=== PATIENT | female | born 1955 | race Two or more races ===

== ENCOUNTER → 2017-10-14 | Outpatient (CLI) | payer MEDICARE, MEDICAID ==
[~2017-10-14] MED LIST: ATOR20TA15 PO; CALC12502 PO; CALC1TAB42 PO; LISI-515 PO; VITA400C28 PO
[2017-10-14 11:54] LABS: AUTOMATED NEUTROPHIL # 3.6 TH/MM3 (1.8-7.7); BASOPHIL % 0.6 % (0.0-2.0); EOSINOPHIL # 0.1 TH/MM3 (0-0.4); EOSINOPHIL % 2.2 % (0.0-4.0); HEMATOCRIT 40.4 % (35.0-46.0); HEMOGLOBIN 13.3 GM/DL (11.6-15.3); LYMPHOCYTE # 1.9 TH/MM3 (1.0-4.8); MEAN CELL VOLUME 90.5 FL (80.0-100.0); MEAN CORPUSCULAR HEMOGLOBIN 29.8 PG (27.0-34.0); MEAN CORPUSCULAR HGB CONC 32.9 % (32.0-36.0); MEAN PLATELET VOLUME 8.7 FL (7.0-11.0); MONOCYTE # 0.4 TH/MM3 (0-0.9); NEUT % 59.2 % (16.0-70.0); PLATELET COUNT 180 TH/MM3 (150-450); RED BLOOD COUNT 4.46 MIL/MM3 (4.00-5.30); RED CELL DISTRIBUTION WIDTH 12.8 % (11.6-17.2)
== END ==
LOC: PHPRE 11:14
PROVIDERS: ATTEND Orthopaedic Surgery
DX: Z01.812 Encounter for preprocedural laboratory examination (principal); M19.011 Primary osteoarthritis, right shoulder; S43.421A Sprain of right rotator cuff capsule, initial encounter
CPT/HCPCS: 36415; 85025

== ENCOUNTER → 2017-10-23 | Day surgery (SDC) | payer MEDICARE, MEDICAID ==
[~2017-10-23] VITALS: Ht 160 cm; Wt 79.0 kg
[~2017-10-23] MED LIST changes: +ACETAMINOPHEN/HYDROcodone 325 MG/5 MG TAB ONE; +BUPIVACAINE HCL PF 0.5% 10 ML VIAL ONE; +BUPIVACAINE/EPINEPHRINE 0.5% PF 10 ML VIAL ONE; -CALC12502 PO; +CHLORHEXIDINE GLUCONATE 2 % 1 PACK (2 CLOTHS) TOPICAL PRN; +CHLORHEXIDINE GLUCONATE 4% SOLN 120 ML BTL TOPICAL SCH; +KETOROLAC TROMETHAMINE 30 MG/ML (IVP) VIAL ONE; +LACTATED RINGER'S 1000 ML IV PRN; +METOPROLOL TARTRATE 25 MG TAB PO PRN; +MIDAZOLAM HCL 5 MG/ML VIAL (1 ML) ONE; +NS IV SCH; +POVIDONE IODINE 5% (ANTISEPSIS KIT) 4 APPLICATIONS EACH NARE PRN; +SODIUM CHLOR 0.9% 250 ML INJ 250 ML ONE; +SODIUM CHLORID 0.9% 500 ML IV PRN; +VANCOMYCIN 1000 MG/NS 250 ML ON-CALL IV SCH; +VANCOMYCIN HCL 1000 MG VIAL ONE; +VANCOMYCIN IV SCH; -VITA400C28 PO; +ceFAZolin 2 GM PREMIX 50 ML IV SCH
[2017-10-23 07:00] VITALS: PULSE 66
[2017-10-23 07:26] VITALS: PULSE 104
--- NOTE | 2017-10-23 09:42 | MP ---
cc: Marshall Ag MD DATE OF OPERATION: 10/23/2017 DATE: 10/23/2017 SURGEON: Marshall Ag MD PREOPERATIVE DIAGNOSES: 1. Rotator cuff tear of the right shoulder. 2. Osteoarthritis acromioclavicular joint. 3. Impingement syndrome of the right shoulder. POSTOPERATIVE DIAGNOSES: 1. Rotator cuff tear of the right shoulder. 2. Osteoarthritis acromioclavicular joint. 3. Impingement syndrome of the right shoulder. 4. Complete avulsion tear of the rotator cuff. PROCEDURE: 1. Repair of chronic avulsed rotator cuff tear. 2. Excision of distal clavicle, right shoulder. DETAILS OF PROCEDURE: The patient was placed on the operating room table in the supine position with a pad under the shoulder blade and then placed in the modified beach chair position. Adequate general anesthesia was administered by the anesthesiologist. The subcutaneous tissue was first infiltrated with 5 mL of 0.5% Marcaine with epinephrine. The patient did receive a nerve block while in the holding unit. A timeout was called after the patient was prepped and draped in the usual sterile fashion. The patient's name, procedure, location, etc. were fully confirmed. A short curved incision was made for approximately 1 inch over the midportion between the acromioclavicular joint and the acromial process and then taken down through the subcutaneous tissues. Bleeding points were electrocauterized. Deep fascia was incised, as well, followed by removal of the attachment of the deltoid muscle along the anterior border of the acromial process and distal clavicle. The acromioclavicular joint was identified and then excised for approximately 1 to 1.25 cm, revealing the presence of an obvious degenerated joint. The coracoacromial ligament was thickened and excised. Using sharp and blunt dissection, we were able to further expose the underlying rotator cuff which was obviously torn. An acromioplasty was performed with a high speed power bur until the entire impingement was released. The rotator cuff was then further debrided, freed digitally and then repaired to the bone with two Bio-absorbable corkscrew anchors utilizing #2 FiberWire. Almost complete repair was accomplished, which did appear to be essentially watertight. The shoulder was thoroughly irrigated throughout the procedure. The deltoid muscle was then repaired with interrupted sutures of remaining #2 FiberWire. The subcutaneous tissue was closed with running simple 3-0 Vicryl. The skin edges were approximated with a running subcuticular 4-0 Vicryl. Steri-Strips were applied, followed by a sling and swathe immobilizer. Sponge count, needle counts and instrument counts were reportedly correct x2. Estimated blood loss was less than 50 mL. The patient tolerated the procedure well and was transferred to the recovery room in satisfactory and stable condition. MD JEANETTE Jiang/LYNN , 09:18 AM , 09:41 AM
[2017-10-23 11:50] VITALS: BP 140/83; PULSE 91; RESP 18; TEMP 97.8; O2SAT 97
== END | disposition home or self-care (01) ==
LOC: PHSDC 06:07 → EDUNIT# 08:00
PROVIDERS: ATTEND Orthopaedic Surgery
DX: M75.121 Complete rotator cuff tear or rupture of right shoulder, not specified as traumatic (principal); M19.011 Primary osteoarthritis, right shoulder; M75.41 Impingement syndrome of right shoulder
CPT/HCPCS: 00450; 01630; 01991; 23120; 23420; 64417; J1885; J2250; J3370; J7050; J7120; C1713